=== PATIENT | female | born 1950 | race Caucasian/White ===

== ENCOUNTER → 2017-03-01 | Outpatient (CLI) | payer OTHER, MEDICARE | LOC: FIMAGING 10:30 | PROVIDERS: ATTEND Nurse Practitioner | DX: Z12.31 Encounter for screening mammogram for malignant neoplasm of breast (principal) | CPT/HCPCS: G0202 ==

== ENCOUNTER → 2018-03-03 | Outpatient (CLI) | payer OTHER, MEDICARE | LOC: FIMAGING 10:02 | PROVIDERS: ATTEND Nurse Practitioner | DX: Z12.31 Encounter for screening mammogram for malignant neoplasm of breast (principal); Z13.820 Encounter for screening for osteoporosis; M85.89 Other specified disorders of bone density and structure, multiple sites ==

== ENCOUNTER → 2018-07-09 | Outpatient (CLI) | payer OTHER, MEDICARE | LOC: FIMAGING 13:43 | PROVIDERS: ATTEND Physician Assistant Medical | DX: M46.92 Unspecified inflammatory spondylopathy, cervical region (principal); M50.321 Other cervical disc degeneration at C4-C5 level; M51.34 Other intervertebral disc degeneration, thoracic region; M50.33 Other cervical disc degeneration, cervicothoracic region; M46.94 Unspecified inflammatory spondylopathy, thoracic region; M46.93 Unspecified inflammatory spondylopathy, cervicothoracic region; M48.02 Spinal stenosis, cervical region; M48.03 Spinal stenosis, cervicothoracic region; M48.04 Spinal stenosis, thoracic region ==